=== PATIENT | male | born 1935 | race Caucasian/White ===

== ENCOUNTER 2017-06-25 17:14 | Inpatient (IN) | payer OTHER ==
[~2017-06-25] VITALS: Ht 175.3 cm; Wt 89.8 kg
[2017-06-25] MEDS ORDERED: NORVASC5 MG PO (18:03)
[2017-06-25] MEDS ORDERED: ASPIRIN EC81 M1 PO (18:04)
[2017-06-25] MEDS ORDERED: LIPITOR 20 MG T20 M1 PO (18:05)
[2017-06-25] MEDS ORDERED: CARVEDILOL3.125 MG PO (18:06)
[2017-06-25] MEDS ORDERED: PROBIOTIC1 EAC2 PO (18:06)
[2017-06-25] MEDS ORDERED: PLAVIX 75 MG TA75 M1 PO (18:07)
[2017-06-25] MEDS ORDERED: FINASTERIDE5 MG PO (18:07)
[2017-06-25] MEDS ORDERED: TRESIBA FL100 UNIT/1 SUBQ (18:08)
[2017-06-25] MEDS ORDERED: SAW PALMETTO160 MG PO (18:09)
[2017-06-25] MEDS ORDERED: FLOMAX0.4 MG PO (18:10)
[2017-06-25] MEDS ORDERED: CO Q-10100 MG PO (18:11)
[2017-06-25 18:45] VITALS: BP 152/51
--- NOTE | 2017-06-25 19:03 | NUR ---
PT TO ROOM 322 PER W/C PER VAN AND IS ALERT AND ORIENTATED. PT ORIENTATED TO CALL LIGHT AND SURROUNDINGS AND VS TAKEN. PT TRANSFERRED TO RECLINER FROM W/ WITH MIN ASSIST OF 1 WITH STEADY GAIT. PT INSTRUCTED ON USE OF CALL LIGHT AND TO CALL FOR ASSIST WITH ALL TRANSFERRS AND HE AGREES.
[2017-06-26 03:44] LABS: HEMATOCRIT 39.2 % (42.0-52.0); HEMOGLOBIN 13.7 gm/dL (14.0-18.0); MCH 32.2 pg (26.0-34.0); MCHC 34.8 g/dL (28.0-37.0); MCV 92.4 fL (80.0-100.0); MPV 8.7 fl. (7.2-11.1); RBC 4.24 mil/uL (4.50-6.00); RDW-CV 13.3 % (10.5-14.5); WBC 13.2 thou/uL (4.0-11.0)
[2017-06-26 03:54] LABS: CALCIUM 8.2 mg/dL (8.5-10.1); POTASSIUM 4.2 mmol/L (3.5-5.1)
--- NOTE | 2017-06-26 05:35 | NUR ---
ASSUMED PT CARE AT 1930. PT RECENTLY ARRIVED FROM [place], S/P R CVA AND R ENDARTERECTOMY. ADMISSION PAPERWORK AND DATABASES COMPLETED. PT ALERT AND ORIENTED X4, POLITE AND COOPERATIVE WITH CARES. PT C/O ABDOMINAL PAIN, GIVEN MOM, HAD EXTRA LARGE STOOL IN BSC. TRANSFERRED TO BED WITH MOD ASSIST, GAIT BELT, STAND/PIVOT. PT SLEPT WELL OVERNIGHT, INCONTINENT X1. PT TAKES PILLS WHOLE WITH WATER WITHOUT DIFFICULTY. PT HAS BRUISING TO R NECK AND LEFT ARM. CALL LIGHT AND FREQUENTLY USED ITEMS WITHIN REACH. HOURLY ROUNDING IN PROGRESS, WILL CONTINUE TO MONITOR.
[2017-06-26 08:00] VITALS: BP 144/64
--- NOTE | 2017-06-26 09:38 | NUR ---
Nutrition: Pt admitted to Rehab s/p CVA. Pt has DM. Waiting for insulin to arrive from home. BG is 163. +BM. RX noted. Wt: 203#. Heart Healthy diet. RD will add CHO count to diet order. RN stated no nutrition concerns at this time. Low risk. Will follow weekly.
--- NOTE | 2017-06-26 12:27 | NUR ---
SW met with pt to complete initial assessment, introduce self, and SW role. Pt in the room as well. Pt alert, oriented and pleasant. Pt anticipates to be able to dc home with . Pt has children and grandchildren in the area. Pt was previously independent with ADLs and mobility. Pt has a walker and access to a wc if needed. Pt home is one level and 2 steps to get inside the home. SW to continue to follow to assist with safe dc planning.
--- NOTE | 2017-06-26 15:36 | NUR ---
I have reviewed the documentation by SIMON BOCANEGRA from 06/26/17 to 06/26/17 and I concur with it. ALIREZA MONACO
--- NOTE | 2017-06-26 15:49 | NUR ---
ASSUMMED CARE OF PT AT 0730, PT ALERT AND ORIENTED, PT TRANSFERS WITH SBA/MIN ASSIST GB AND WALKER, PT DENIES PAIN, PT DENIES NAUSEA, TAKING FOOD AND FLUIDS WELL, PARTICIPATED IN ALL THERAPIES, VOIDS PER URINAL, HOURLY ROUNDING COMPLETED, TO DININGROOM FOR LUNCH, BRUISED NECK AT ENDARTERECTOMY SITE, FAMILY BROUGHT IN PTS HOME INSULIN PEN, SENT TO PHARMACY FOR APPROVAL. ASSESSMENT COMPLETE, WILL CONTINUE TO MONITER.
[2017-06-26 20:00] VITALS: BP 140/57
--- NOTE | 2017-06-27 02:17 | NUR ---
ASSUMED CARE AT 1930. PATIENT S/P RT CVA. RESTING IN RECLINER UNTIL HS. UP TO VOID PER TOILET, WAS ABLE TO MANAGE CLOTHES AND HYGIENE. UP WITH STEADYING ASSIST, GAIT BELT, WALKER. USED URINAL TWICE WITH LARGE AMOUNTS, BUT HAS BEEN INCONTINENT TWICE. HAD TO REMOVED PAJAMA BOTTOMS WITH FIRST INCONTINENCE, AND SHIRT WITH SECOND TIME. NOW WEARING HOSPITAL GOWN. URINAL AT BEDSIDE. ASSISTED WITH TURNS. TAKES PILLS WHOLE WITH WATER WITHOUT DIFF. RIGHT NECK BRUISED AND EDEMATOUS, INCISION C/D/I. HOURLY ROUNDS CONTINUE, BED ALARM ON. CALL LITE IN REACH.
--- NOTE | 2017-06-27 05:52 | NUR ---
SLEPT MOST OF THE NIGHT. INCONTINENT OF URINE TWICE THUS FAR THIS SHIFT. DID VOID PER URINAL AT TIMES. ASSISTED WITH TURNS. NO C/O PAIN. HOURLY ROUNDS CONTINUE, BED ALARM ON. CALL LITE IN REACH.
[2017-06-27 08:00] VITALS: BP 106/67
[2017-06-27 13:49] LABS: URINE BILIRUBIN NEGATIVE (Negative); URINE BLOOD NEGATIVE (Negative); URINE CLARITY CLEAR; URINE COLOR YELLOW; URINE GLUCOSE-RANDOM 3+ (Negative); URINE KETONES NEGATIVE (Negative); URINE LEUKOCYTES-REFLEX NEGATIVE (Negative); URINE NITRITE-REFLEX NEGATIVE (Negative); URINE PROTEIN NEGATIVE (Negative); URINE SPECIFIC GRAVITY 1.015 (1.005-1.030); URINE UROBILINOGEN 0.2 E.U./dl (0.2-1.0)
[2017-06-27 20:00] VITALS: BP 132/72
--- NOTE | 2017-06-28 05:21 | NUR ---
ASSUMED CARE AT 1930. PATIENT S/P CVA. IN CHAIR AT BEGINNING OF SHIFT, ASSISTED WITH HS CARES. STOOD TO VOID AT TOILET AT HS, ABLE TO DOFF CLOTHES WITH EXTRA TIME. CHANGED INTO HOSPITAL GOWN AT HS DUE TO HX SPILLING URINAL. ASSISTANCE GIVEN WITH URINAL. WEARS BRIEF. UP WITH CGA, GAIT BELT, WALKER. TURNS SELF IN BED. TAKES PILLS ALL AT ONE WITH WITH WATER. AFTER DINNER PATIENT CONSUMED LARGE SODA FROM [employer]. HE STATES HIS ORDERED DIET, BUT THINKS IT WAS REGULAR SODA FROM THE TASTE OF IT. BLOOD SUGAR AT HS 365. THIS REPORTED TO PHYSICIAN, NEW ORDERS FOR SLIDING SCALE INSULIN OBTAINTED. PATIENT STATES THAT HE HAS NEVER BEEN ON A SLIDING SCALE BEFORE, AND EDUCATION PROVIDED ABOUT IT. PATIENT IS AGREEABLE TO NEW ORDERS. HOURLY ROUNDS CONTINUE. BED ALARM ON. CALL LITE IN REACH.
[2017-06-28 08:00] VITALS: BP 136/74
--- NOTE | 2017-06-28 16:31 | NUR ---
ASSUMMED CARE OF PT AT 0730, PT ALERT AND ORIENTED, PT TRANSFERS WITH ASSIST OF 1, GB WALKER, AMBULATES TO TOILET OR VOIDS PER URINAL, PT DENIES NAUSEA, TAKING FOOD AND FLUIDS WELL, TO DININGROOM FOR LUNCH, DENIES PAIN, VISITORS HERE THIS PM, PT UP IN CHAIR FOR MEALS, PT DID PARTIAL BATH WITH SET UP, HOURLY ROUNDING COMPLETED, ASSESSMENT COMPLETE, WILL CONTINUE TO MONITER.
[2017-06-28 19:45] VITALS: BP 142/73
--- NOTE | 2017-06-28 20:00 | NUR ---
RECEIVED REPORT AND ASSUMED CARE OF PT, ASSESSMENT COMPLETED. SITTING UP IN CHAIR WATCHING TV. RT NECK INCISION INTACT, BRUISING NOTED AND SOME SWELLING. NO COMPLAINTS VOICED. WILL CONT TO MONITOR AND ASSIST NEEDED.
[2017-06-29 04:57] LABS: HEMATOCRIT 43.5 % (42.0-52.0); HEMOGLOBIN 15.2 gm/dL (14.0-18.0); MCH 32.6 pg (26.0-34.0); MCHC 34.9 g/dL (28.0-37.0); MCV 93.5 fL (80.0-100.0); RBC 4.65 mil/uL (4.50-6.00); RDW-CV 13.5 % (10.5-14.5); WBC 9.7 thou/uL (4.0-11.0)
[2017-06-29 05:19] LABS: CALCIUM 8.4 mg/dL (8.5-10.1); CREATININE 0.9 mg/dL (0.6-1.3); MAGNESIUM 1.9 mg/dL (1.8-2.4); POTASSIUM 3.9 mmol/L (3.5-5.1); TOTAL BILIRUBIN 0.7 mg/dL (<0.1-1.0); TOTAL PROTEIN 6.4 g/dL (6.4-8.2)
--- NOTE | 2017-06-29 05:28 | NUR ---
ASSUMED CARES AT 0200. PT IS A MIN ASSIST WITH GAIT BELT AND WALKER. UP TO BATHROOM. STAFF DID ASSIST WITH USING URINAL DURING THE NIGHT. SLEPT WELL. USED CALL LIGHT APPROPRIATELY. BED ALARM ON.
[2017-06-29 08:00] VITALS: BP 142/75
--- NOTE | 2017-06-29 16:15 | NUR ---
PT CARE ASSUMED THIS AM, ASSESSMENT AND VITAL SIGNS COMPLETED DOCUMENTED. PT TRANSFERS FROM BED TO RECLINER WITH SUPERVISION, AMBULATES WITHIN ROOM WITH WALKER AND SUPERVISION, USES THE TOILET AND HAD A LARGE BM. PT DENIES DISCOMFORT. FALL PRECAUTIONS AND HOURLY ROUNDING CONTINUE, PT HAS BEEN USING THE CALL LIGHT FOR STAFF ASSISTANCE.
[2017-06-29 19:45] VITALS: BP 156/88
--- NOTE | 2017-06-29 19:50 | NUR ---
RESTING QUIETLY IN BED. IN GOOD SPIRITS. VERY PLEASANT. DENIES DISCOMFORT. URINAL AND CALL LIGHT WITHIN REACH. TOOK MEDS WHOLE WITH WATER. SNACK PROVIDED.
--- NOTE | 2017-06-30 05:12 | NUR ---
USED URINAL DURING THE NIGHT. NO COMPLAINTS VOICED. HOURLY ROUNDING IN PROGRESS.
[2017-06-30 07:33] VITALS: BP 129/81
--- NOTE | 2017-06-30 16:34 | NUR ---
ASSUMMED CARE OF PT AT 0730, PT ALERT AND ORIENTED, FORGETFUL, PT TRANSFERS WITH SBA TO MIN ASSIST, GB WALKER, PT TAKING FOOD AND FLUIDS WELL, PT VOIDS PER URINAL OR TOILET, TO DININGROOM FOR LUNCH, DENIES PAIN, DENIES NAUSEA, TAKING FOOD AND FLUIDS WELL, PARTICIPATED IN ALL THERAPIES, HOURLY ROUNDING COMPLETED, ASESSMENT COMPLETE, WILL CONTINUE TO MONITER.
--- NOTE | 2017-06-30 20:25 | NUR ---
SITTING UP IN BED. DENIES DISCOMFORT. CALL LIGHT AND URINAL WITHIN REACH. TOOK MEDS WHOLE ALL AT ONCE WITH WATER. SNACK PROVIDED.
[2017-06-30 21:37] VITALS: BP 158/83
--- NOTE | 2017-07-01 05:32 | NUR ---
RESTED QUIETLY. USED URINAL DURING THE NIGHT. HOURLY ROUNDING IN PROGRESS.
[2017-07-01 07:36] VITALS: BP 143/79
--- NOTE | 2017-07-01 15:00 | NUR ---
Team conference held, SW met with pt to review team conference summary. Pt was experiencing stomach cramps and had a couple episodes of diarrhea. SW discussed plan for pt to remain on rehab unit and continue therapies with plan for team to reteam and reassess pt length of stay during team conference on Thursday. Team reported pt to need min assist with 12 stairs, toilet transfer, bathing, problem solving, and memory so plan is for pt to continue working on making progress in those areas especially. Pt in agreement with plan. SW called pt Liv Shahid to try to review team conference summary with pt as well, Liv Shahid did not answer so SW left a detailed message. SW to continue to follow to assist with safe dc planning.
--- NOTE | 2017-07-01 16:53 | NUR ---
ASSUMED CARE AT 0730 PATIENT ALERT/ORIENTED, NO COMPLAINTS OF PAIN THIS SHIFT, UP WITH ASSIST OF ONE AND WALKER/GAIT BELT. PARTICIPATED IN ALL THERAPIES TODAY, TO DINING ROOM FOR MEALS, HOURLY ROUNDING COMPLETED, BED/CHAIR ALARMS IN PLACE, CALL LIGHT IN REACH.
[2017-07-01 20:00] VITALS: BP 167/83
--- NOTE | 2017-07-02 05:03 | NUR ---
ASSUMED PT CARE AT 1915. PT ALREADY IN BED AT SHIFT CHANGE, POLITE AND COOPERATIVE WITH CARES. DENIES PAIN. TAKES PILLS WHOLE WITH WATER WITHOUT DIFFICULTY. PT VOIDS PER URINAL OVERNIGHT, STAFF EMPTIES. PT REFUSES TURNS, CAN TURN HIMSELF. CALL LIGHT AND FREQUENTLY USED ITEMS WITHIN REACH. HOURLY ROUNDING IN PROGRESS, WILL CONTINUE TO MONITOR.
[2017-07-02 07:32] VITALS: BP 149/83
--- NOTE | 2017-07-02 16:22 | NUR ---
ASSUMED CARE AT 0730 PATIENT ALERT/ORIENTED, NO COMPLAINTS OF PAIN THIS SHIFT, UP WITH ONE WALKER AND GAIT BELT, PARTICIPATED IN ALL THERAPIES TODAY, TO DINING ROOM FOR MEALS, BED/CHAIR ALARMS IN PLACE, CALL LIGHT IN REACH, HOURLY ROUNDING COMPLETED
[2017-07-02 20:07] VITALS: BP 147/80
--- NOTE | 2017-07-02 22:17 | NUR ---
ASSUMED CARE AT 1930. PATIENT S/P CVA AFTER CAROTID ENDARTERECTOMY. BRUISING CONTINUES TO NECK AT INCISION AREA. UP WITH SBA, GAIT BELT, WALKER. VOIDED PER TOILET AT HS, BUT WILL USE URINAL THROUGH NIGHT. COLACE HELD THIS PM DUE TO PRIOR LOOSE STOOLS. DOES OWN CLOTHING ADJUSTMENTS, AND HYGIENE AFTER VOIDING, ABLE TO GET LEGS INTO BED WITHOUT DIFF. TAKES PILLS WHOLE ALL AT ONE TIME WITH WATER WITHOUT DIFF. PATIENT TURNS SELF, REFUSES ASSIST. CALL LITE IN REACH. BED ALARM ON. HOURLY ROUNDS CONTINUE.
[2017-07-03 04:08] LABS: HEMATOCRIT 42.5 % (42.0-52.0); HEMOGLOBIN 14.7 gm/dL (14.0-18.0); MCH 32.3 pg (26.0-34.0); MCHC 34.5 g/dL (28.0-37.0); MCV 93.8 fL (80.0-100.0); MPV 8.2 fl. (7.2-11.1); RBC 4.53 mil/uL (4.50-6.00); RDW-CV 13.8 % (10.5-14.5); WBC 10.4 thou/uL (4.0-11.0)
[2017-07-03 04:41] LABS: CALCIUM 8.4 mg/dL (8.5-10.1); POTASSIUM 3.8 mmol/L (3.5-5.1)
--- NOTE | 2017-07-03 05:32 | NUR ---
SLEPT MOST OF THE NIGHT EXCEPT TO VOID. USED URINAL ONCE AFTER GOING TO BED. TOLERATED WELL. TURNS SELF. NO C/O PAIN. HOURLY ROUNDS CONTINUE. BED ALARM ON. CALL LITE IN REACH.
[2017-07-03 08:06] VITALS: BP 149/66
[2017-07-03 20:09] VITALS: BP 165/51
--- NOTE | 2017-07-04 00:04 | NUR ---
ASSUMED CARE AT 1930. PATIENT S/P CVA WITH LT SIDED WEAKNESS. RESTING IN RECLINER UNTIL AROUND 1999. UP WITH SBA, GAIT BELT, AND CANE. VOIDS PER TOILET DURING DAY, USES URINAL AT NOC. DOES OWN HYGIENE AND CLOTHING ADJUSTMENTS. TURNS SELF. DECLINES COLACE. DENIES PAIN. HOURLY ROUNDS CONTINUE, BED ALARM ON. CALL LITE IN REACH.
--- NOTE | 2017-07-04 05:48 | NUR ---
SLEPT MOST OF THE NIGHT. SPILLED URINAL ONCE, REQUIRING LINEN CHANGE. BOTTOM PINK, SKIN CARE DONE, MOISTURE BARRIER APPLIED. WILL REMOVE BRIEFS IN HOPES OF KEEPING FROM SPILLING URINAL. ALSO DISCUSSED VOIDING PER TOILET AT NIGHT THAT IS WHAT HE WOULD HAVE A GOAL FOR HOME. HOURLY ROUNDS CONTINUE. BED ALARM ON. CALL LITE IN REACH.
--- NOTE | 2017-07-04 06:15 | NUR ---
VOIDED PER TOILET, AND STATES THAT HE THINKS HE EMPTIES BETTER STANDING RATHER THAN USING URINAL. STEADYING ASSIST NEEDED AT THIS TIME.
[2017-07-04 08:09] VITALS: BP 129/67
--- NOTE | 2017-07-04 17:56 | NUR ---
ASSUMED CARE AT 0730 PATIENT ALERT/ORIENTED, NO COMPLAINTS OF PAIN THIS SHIFT, UP WITH STANDBY ASSIST AND CANE. HOURLY ROUNDING COMPLETED, TO DINING ROOM FOR MEALS, BED/CHAIR ALARMS IN PLACE, CALL LIGHT IN REACH
[2017-07-04 19:56] VITALS: BP 148/71
--- NOTE | 2017-07-05 05:35 | NUR ---
ASSUMED PT CARE AT 1930. PT ALERT AND ORIENTED X4, POLITE AND COOPERATIVE WITH CARES. PT UP WITH SBA, GAIT BELT AND CANE TO BR AT BEGINNING OF SHIFT TO VOID. PT TO BED WITH SBA, CAN LIFT OWN LEGS INTO BED WITHOUT ASSIST. PT USED URINAL OVERNIGHT TO VOID, STAFF EMPTIED. TAKES PILLS WHOLE ONE AT A TIME WITHOUT DIFFICULTY. PT CAN TURN SELF IN BED, REFUSES ASSIST. CALL LIGHT AND FREQUENTLY USED ITEMS WITHIN REACH. BED ALARM ON FOR SAFETY. HOURLY ROUNDING IN PROGRESS, WILL CONTINUE TO MONITOR.
[2017-07-05 07:52] VITALS: BP 139/73
--- NOTE | 2017-07-05 18:29 | NUR ---
ASSUMED CARE AT 0730 PATIENT ALERT/ORIENTED, NO COMPLAINTS OF PAIN/DISCOMFORT, UP WITH ASSIST OF ONE AND CANE. TO DINING ROOM FOR MEALS, /FRIENDS VISITING THROUGHOUT DAY. HOURLY ROUNDING COMPLETED, BED/CHAIR ALARMS IN PLACE. CALL LIGHT IN REACH.
[2017-07-05 20:13] VITALS: BP 164/67
--- NOTE | 2017-07-05 20:15 | NUR ---
AMBULATED FROM BED TO THE TOILET WITH SBA, GAITBELT, CANE. STOOD AT TOILET TO VOID AND SPILLED URINE ON GOWN AND ON THE FLOOR. NEW GOWN PROVIDED AND URINE CLEANED OFF OF FLOOR. DENIES PAIN. SNACK PROVIDED.
--- NOTE | 2017-07-06 06:20 | NUR ---
USED URINAL X ONE DURING THE NIGHT. NO COMPLAINTS VOICED. HOURLY ROUNDING IN PROGRESS.
[2017-07-06 07:30] VITALS: BP 142/75
--- NOTE | 2017-07-06 08:00 | NUR ---
ASSUMED CARE OF PT ASSESSED AND DOCUMENTED. PT IS A&O WITH NO C/O PAIN. VSS WNL. PT IS AFEBRILE. FALL PRECAUTIONS IN PLACE PER FACILITY PROTOCOL. WM.
[2017-07-06 08:21] LABS: HEMATOCRIT 41.3 % (42.0-52.0); HEMOGLOBIN 14.5 gm/dL (14.0-18.0); MCH 32.7 pg (26.0-34.0); MCV 93.3 fL (80.0-100.0); MPV 8.6 fl. (7.2-11.1); RBC 4.43 mil/uL (4.50-6.00); RDW-CV 13.9 % (10.5-14.5); WBC 6.6 thou/uL (4.0-11.0)
[2017-07-06 08:29] LABS: CALCIUM 8.3 mg/dL (8.5-10.1); POTASSIUM 3.8 mmol/L (3.5-5.1)
--- NOTE | 2017-07-06 14:05 | NUR ---
SPOKE WITH JHOANA AT DR SAPP. SHE WANTED TO SEE PT TODAY IN HOUSE SO PUT IN CONSULT PER CONVERSATION WITH DR FORBES.
--- NOTE | 2017-07-06 17:11 | NUR ---
CM SPOKE TO THE PATIENT AND HIS SPOUSE TO DISCUSS ANY QUESTIONS OR CONCERNS THAT THEY MAY HAVE FOR TOMORROW'S TEAM CONFRENCE MEETING. PATIENT AND HIS SPOUSE HAVE NO QUESTIONS OR CONERNS AT THIS TIME. CM WILL REMAIN AVAILABLE TO ASSIST AND FOLLOW NEEDED.
--- NOTE | 2017-07-06 17:53 | NUR ---
PT HAS RESTED IN HIS ROOM THIS SHIFT. PT UP AMBULATING WITH A CANE AND APPEARS STEADY ON HIS FEET. PT HAD NO C/O PAIN. EDUCATION GIVEN ON DEMAND. HOURLY ROUNDING COMPLETE. PT UP TO THE DINING ROOM FOR LUNCH AND DINNER.
[2017-07-06 20:14] VITALS: BP 162/73
--- NOTE | 2017-07-07 05:36 | NUR ---
ASSUMED PT CARE AT 1930. PT ALERT AND ORIENTED X4, POLITE AND COOPERATIVE WITH CARES. PT UP WITH SBA, GAIT BELT AND CANE TO BR AT BEGINNING OF SHIFT TO VOID. PT TO BED WITH SBA, CAN LIFT OWN LEGS INTO BED WITHOUT ASSIST. PT USED URINAL OVERNIGHT TO VOID, STAFF EMPTIED. TAKES PILLS WHOLE ALL AT ONCE WITHOUT DIFFICULTY. CALL LIGHT AND FREQUENTLY USED ITEMS WITHIN REACH, BED ALARM ON FOR SAFETY. HOURLY ROUNDING IN PROGRESS, WILL CONTINUE TO MONITOR.
[2017-07-07 07:30] VITALS: BP 146/73
--- NOTE | 2017-07-07 17:15 | NUR ---
PT PARTICIPATES IN ALL THERAPIES. TOLERATES PO WELL WITH GOOD APPETITE. PT UP IN ROOM WITH WALKER AND SB ASSIST
[2017-07-07 19:30] VITALS: BP 155/71
--- NOTE | 2017-07-08 05:27 | NUR ---
ASSUMED CARES AT 1920. PT ALERT AND ORIENTED. PLEASANT. DENIES ANY PAIN. HE IS A MIN ASSIST WITH GAIT BELT AND CANE. UP TO BATHROOM. TAKES PILLS WHOLE. CALL LIGHT IN REACH.
[2017-07-08 07:00] VITALS: BP 156/69
--- NOTE | 2017-07-08 16:13 | NUR ---
CM SPOKE TO THE PATIENT TO DISCUSS DISCHARGE PLANNING NEEDS AND CHOICE OF HH. PATIENT CHOSE [facility]. CM SPOKE TO AGUSTÍN AT [facility] TO INFORM OF THE REFERRAL FOR HH AND FAXED THE PATIENT'S CLINCAL INFO. [facility] IS ABLE TO ACCEPT THE PATIENT, AND WILL NEED ORDERS FAXED AT D/C. CM ALSO SPOKE TO LUCY WITH [facility] TO INFORM OF THE NEED FOR DME AT DISCHARGE. LUCY RETURNED CALL AND INFORMS THAT THE PATIENT QUALIFIES FOR A WALKER OR CANE, AND WILL JUST NEED THE ORDER FAXED AT D/C. CM WILL REMAIN AVAILABLE TO ASSIST AND FOLLOW NEEDED.
--- NOTE | 2017-07-08 16:35 | NUR ---
ASSUMED CARE AT 0730 PATIENT ALERT/ORIENTED, NO COMPLAINTS OF PAIN THIS SHIFT, TO DINING ROOM FOR MEALS, HOURLY ROUNDING COMPLETED, BED/CHAIR ALARMS IN PLACE, CALL LIGHT IN REACH, PARTICIPATED IN ALL THERAPIES TODAY, AMBULATING WITH CANE AND GAIT BELT WITH NO DIFFICULTIES.
[2017-07-08 20:29] VITALS: BP 125/69
--- NOTE | 2017-07-08 23:16 | NUR ---
ASSUMED CARE AT 1930. PATIENT RESTING IN RECLINER UNTIL AROUND 2030. VOIDED PER TOILET. ENCOURAGED TO VOID PER TOILET RATHER THAN USE URINAL TO INCREASE ENDURANCE. TAKES PILLS WHOLE WITH WATER. TURNS SELF IN BED. UP WITH SBA. USES CANE IN DAY, ENCOURAGED USE OF WALKER AT [facility] FOR SAFETY. DENIES PAIN. VERY PLEASANT. HOURLY ROUNDS CONTINUE. BED ALARM ON. CALL LITE IN REACH.
[2017-07-09 05:26] LABS: HEMATOCRIT 39.7 % (42.0-52.0); HEMOGLOBIN 14.1 gm/dL (14.0-18.0); MCH 32.8 pg (26.0-34.0); MCHC 35.5 g/dL (28.0-37.0); MCV 92.3 fL (80.0-100.0); RBC 4.3 mil/uL (4.50-6.00); RDW-CV 13.8 % (10.5-14.5); WBC 7.4 thou/uL (4.0-11.0)
--- NOTE | 2017-07-09 05:37 | NUR ---
SLEPT MOST OF THE NIGHT. UP TWICE TO TOILET TO VOID AFTER BEDTIME. TURNS SELF. REFUSES ASSIST. HOURLY ROUNDS CONTINUE. BED ALARM ON. CALL LITE IN REACH.
[2017-07-09 05:41] LABS: CALCIUM 8.4 mg/dL (8.5-10.1); CREATININE 0.9 mg/dL (0.6-1.3); POTASSIUM 3.4 mmol/L (3.5-5.1)
--- NOTE | 2017-07-09 05:53 | NUR ---
VENOUS LAB DRAW HAD GLUCOSE AT 60. FINGERSTICK BLOOD SUGAR DONE=59. GIVEN VANILLA ICE CREAM AT THIS TIME. DENIES S/SX OF HYPOGLYCEMIA
--- NOTE | 2017-07-09 06:59 | NUR ---
BLOOD SUGAR AT 0630 WAS 117.
[2017-07-09 08:14] VITALS: BP 148/66
--- NOTE | 2017-07-09 15:26 | NUR ---
Following for d/c planning needs. Spoke with [facility] liaison and will fax order for walker when available.
--- NOTE | 2017-07-09 19:33 | NUR ---
PT HAS BEEN UP TO RECLINER MOST OF DAY AND CALLS FOR ASSIST WITH AMBULATION. PT DENIES PAIN OR NAUSEA. AND TOLERATES MEALS. PT AMBULATES WITH MIN ASSIST AND USE OF CANE.PT PROGRESSES TOWARDS GOALS AND HOURLY ROUNDING CONTINUES.
[2017-07-09 20:34] VITALS: BP 175/69
[2017-07-10 04:38] LABS: CALCIUM 8.4 mg/dL (8.5-10.1); CREATININE 0.8 mg/dL (0.6-1.3); POTASSIUM 3.7 mmol/L (3.5-5.1)
--- NOTE | 2017-07-10 05:29 | NUR ---
ASSUMED PT CARE AT 1930. PT ALERT AND ORIENTED X4, POLITE AND COOPERATIVE WITH CARES. DENIES PAIN. TAKES PILLS WHOLE WITH WATER WITHOUT DIFFICULTY. CAN TURN SELF IN BED. UP X4 TO BATHROOM TO VOID OVERNIGHT WITH SBA AND CANE. USES CALL LIGHT APPROPRIATELY. CALL LIGHT AND FREQUENTLY USED ITEMS WITHIN REACH. BED ALARM ON FOR SAFETY. HOURLY ROUNDING IN PROGRESS, WILL CONTINUE TO MONITOR.
[2017-07-10 08:37] VITALS: BP 167/74
[2017-07-10 20:41] VITALS: BP 180/77
--- NOTE | 2017-07-10 23:42 | NUR ---
ASSUMED CARE AT 1930. PATIENT S/P CVA. TO BED AROUND 1999. VOIDS PER TOILET. WEARS PULLUPS. ONE PULLUP WAS SATURATED WITH URINE, BUT DID NOT EXTEND ONTO CLOTHING. PATIENT DONS PULLUPS WITH SETUP. UP WITH SBA, GAIT BELT, CANE. TAKES PILLS WHOLE WITH WATER. TURNS SELF. DENIES PAIN. ENCOURAGED TO SLOW DOWN WITH CANE WALKING. HAD LARGE, HARD BM THIS PM. TAKING STOOL SOFTENERS. HAD FRANCES [employer]ERS AND APPLE JUICE FOR HS SNACK. HOURLY ROUNDS CONTINUE. BED ALARM ON. CALL LITE IN REACH.
[2017-07-11 04:27] LABS: HEMATOCRIT 41.3 % (42.0-52.0); HEMOGLOBIN 14.4 gm/dL (14.0-18.0); MCH 32.7 pg (26.0-34.0); MCHC 34.9 g/dL (28.0-37.0); MCV 93.9 fL (80.0-100.0); MPV 9.1 fl. (7.2-11.1); RBC 4.4 mil/uL (4.50-6.00); RDW-CV 13.9 % (10.5-14.5); WBC 6.1 thou/uL (4.0-11.0)
[2017-07-11 05:06] LABS: CALCIUM 8.7 mg/dL (8.5-10.1); CREATININE 0.8 mg/dL (0.6-1.3); MAGNESIUM 2.1 mg/dL (1.8-2.4); POTASSIUM 3.6 mmol/L (3.5-5.1)
--- NOTE | 2017-07-11 05:38 | NUR ---
VENOUS LAB DRAW RESULTS RETURNED AT 0525. GLUCOSE FROM LAB DRAW WAS 65. FINGER STICK BLOOD SUGAR WAS 71. PATIENT TAKES TRESIBA 20 UNITS DAILY. PATIENT STATES THAT HE IS NOT ON SLIDING SCALE AT HOME. GIVEN VANILLA ICE CREAM AT THIS TIME SINCE BREAKFAST IS NOT UNTIL 0800.
--- NOTE | 2017-07-11 05:57 | NUR ---
SLEPT MOST OF THE NIGHT. UP TO VOID PER TOILET. NEEDS A LITTLE STEADYING ASSIST AT NIGHT WHILE USING CANE. DENIES PAIN. TURNS SELF. SEE PRIOR NOTE REGARDING BLOOD SUGARS. HOURLY ROUNDS CONTINUE. BED ALARM ON. CALL LITE IN REACH.
[2017-07-11 07:53] VITALS: BP 160/63
--- NOTE | 2017-07-11 14:20 | CON ---
[address] [address] CONSULTATION Name: JOSE DOLL Room: [address] IN .R.#: [id number] Admission: 06/25/17 Attend Phys: Sharla Rucker DO Discharge: Date of : 33 Report #: [id number] THIS REPORT FOR: //name// CC: Arjun Rucker DATE OF SERVICE: 07/06/2017 REASON FOR CONSULTATION: Status post right carotid endarterectomy. HISTORY OF PRESENT ILLNESS: The patient is a very pleasant 81-year-old male who is well known to our service with a history of carotid artery stenosis. He was seen in consultation at [facility] on 06/18/2017 after presenting with left-sided weakness. An MRI of the brain during that admission showed acute or early subacute infarcts in the right cerebral hemisphere as well as an old hemorrhagic infarct in the right frontal lobe. A carotid duplex was obtained, which demonstrated 50%-69% stenosis of the right internal carotid artery. He ultimately underwent a right carotid endarterectomy on 06/23/[address] Randy Ryan. He did well postoperatively. He was transferred here to [place] for acute rehabilitation. He reports he has been doing quite well with his therapy. He denies any new CVA or TIA type symptoms. He reports his left-sided weakness has continued to improve, although is not quite yet back to his baseline. He denies any new CVA or TIA type symptoms since his surgery. We have been asked to evaluate the patient for ongoing management following his carotid endarterectomy. He denies any nausea, vomiting, fevers, chills, chest pain or shortness of breath. PAST MEDICAL HISTORY: 1. Carotid artery stenosis. 2. History of cerebrovascular accident. 3. Coronary artery disease. 4. Diabetes mellitus type 2. 5. Hypertension. 6. Hyperlipidemia. 7. Colon cancer. PAST SURGICAL HISTORY: 1. Right carotid endarterectomy. 2. Colon resection. 3. Tonsillectomy. 4. Inguinal hernia repair. ALLERGIES: No known drug allergies. HOME MEDICATIONS: [place] [address] CONSULTATION Name: JOSE DOLL Room: [address] IN [facility]#: [id number] Admission: 06/25/17 Attend Phys: Sharla Rucker DO Discharge: Date of : 34 Report #: [id number] FAMILY HISTORY: Significant for heart disease in his mother. His parents both from cancer at old ages. His maternal grandmother did have a stroke. SOCIAL HISTORY: He is a nonsmoker, no alcohol or illicit drug use. He is , lives in his own home with his . REVIEW OF SYSTEMS: A 12-point review of systems has been reviewed and is negative except for the above-mentioned in the history of present illness. PHYSICAL EXAMINATION: VITAL SIGNS: Temperature 36.4, heart rate 66, blood pressure 142/75, oxygen saturation 96% on room air. GENERAL: He is alert and oriented, in no acute distress. HEENT: Head is normocephalic, atraumatic. NECK: Supple. His right neck incision is clean, dry and intact, healing well. He has mild edema, no significant ecchymosis. HEART: Irregular rhythm, regular rate. CHEST: Lungs clear to auscultation bilaterally. ABDOMEN: Soft, nontender, positive bowel sounds in all quadrants. EXTREMITIES: He has palpable bilateral radial and dorsalis pedis pulses. NEUROLOGIC: He is alert and oriented. He has continued left-sided weakness, but this has greatly improved since his admission at [facility]. LABORATORY DATA: Hemoglobin 14.5, hematocrit 41.3, white blood cell count 6.6, platelets 238. Sodium 144, potassium 3.8, chloride 107, CO2 31, BUN 15, creatinine 1.0. Glucose is 109. ASSESSMENT AND PLAN: Carotid artery stenosis, symptomatic with cerebrovascular accident, status post a right carotid endarterectomy on 06/23/[address] Randy Ryan. He continues to do very well postoperatively. Recommend continuing rehabilitation efforts. We will obtain a followup carotid duplex in our outpatient office in 6 months. Recommend continuing antiplatelet therapy with aspirin as well as statin therapy for stroke risk reduction. We thank you for the opportunity to participate in the care of the patient. Please feel free to contact our office with any questions or concerns. <ELECTRONICALLY SIGNED> By: Ronni Lu DO 07/11/17 [id number] [id number] Rodas /nt
--- NOTE | 2017-07-11 15:12 | NUR ---
ASSUMED CARE AT 0730. ALERT ORIENTED PLEASANT COOPERATIVE, HX OF CVA. TRANSFERS WITH SBA G BELT WALKER AMBULATES TO BR TO VOID ABLE TO DO HYGEINE AND CLOTHING ADJUSTMENTS. BED CHAIR ALARM FOR PT. SAFETY. USES CALL LIGHT APPROPRIATELY FOR ASSIST. FEEDS SELF TAKES MEDS WITHOUT DIFFICULTY. PARTICIPATING IN THERAPIES THROUGHOUT THE DAY. TO FOR MEALS.
[2017-07-11 20:39] VITALS: BP 167/75
--- NOTE | 2017-07-12 05:32 | NUR ---
ASSUMED CARES AT 1920. PT ALERT AND ORIENTED. PLEASANT. DENIES ANY PAIN, N/V, SOA. TAKES PILLS WHOLE WITHOUT ISSUES. HE IS A MIN ASSIST WITH GAIT BELT AND CANE. UP TO BATHROOM. HAD BM AND DID OWN CARES. DID USE URINAL ONCE AND RN EMPTIED. SLEPT MOST OF THE NIGHT. NO COMPLAINTS. CALL LIGHT IN REACH AND BED ALARM ON.
[2017-07-12 07:30] VITALS: BP 159/74
--- NOTE | 2017-07-12 16:13 | NUR ---
ASSUMED CARE AT 0730. ALERT ORIENTED PLEASANT COOPERATIVE. HX OF CVA TRANSFERS WITH SBA G BELT CANE AMBULATES TO DR FOR MEALS, FEEDS SELF TAKES MEDS WITHOUT DIFFICULTY. DENIES PAIN OR REQUESTS. USES CALL LIGHT APPROPRIATELY FOR ASSIST. BED CHAIR ALARM FOR PT. SAFETY. VOIDS IN TOILET BUT GUARD RING MISSING VOIDED IN TOILET AND ALSO ON FLOOR THIS A.M. UP IN RECLINER AT BEDSIDE WITH FEET ELEVATED MUCH OF THE DAY.
[2017-07-12 19:49] VITALS: BP 133/46; BP 172/80
--- NOTE | 2017-07-13 05:40 | NUR ---
ASSUMED CARES AT 1920. PT ALERT AND ORIENTED. PLEASANT. DENIES ANY PAIN, PARKER, N/V, SOA. HE IS A SBA WITH GAIT BELT AND CANE. UP TO BATHROOM. DID ALSO USE URINAL AND RN EMPTIED. SLEPT WELL MOST OF THE NIGHT. CALL LIGHT IN REACH AND BED ALARM ON.
[2017-07-13 08:00] VITALS: BP 161/74
--- NOTE | 2017-07-13 16:19 | NUR ---
CM SPOKE TO THE PATIENT TO DISCUSS DISCHARGE PLANNING NEEDS AND TO DISCUSS ANY QUESTIONS OR CONCERNS THAT HE MAY HAVE. PATIENT HAS NO QUESTIONS OR CONCERNS AT THIS TIME. CM SPOKE TO AGUSTÍN AT [facility] TO INFORM OF PATIENTS D/C TOMORROW. CM FAXED PATIENTS D/C ORDERS. [facility] WILL CONTACT THE PATIENT TO SETUP VISIT. CM TO TO CLARIFY DME NEEDS WITH P.T. AND FAX ORDER. [facility] HAS ALREADY APPROVED PATIENT FOR DME AND P.T. CAN DISPENSE FROM CLOSET. CM WILL REMAIN AVAILABLE TO ASSIST AND FOLLOW NEEDED.
--- NOTE | 2017-07-13 17:11 | NUR ---
ASSUMED CARE AT 0730. ALERT ORIENTED PLEASANT COOPERATIVE. HX OF CVA WEAKNESS. TRANSFERS WITH SBA G BELT WALKER AND AMBULATES TO BR TO VOID ABLE TO DO HYGEINE AND CLOTHING ADJUSTMENTS. DENIES PAIN OR REQUESTS. PARTICIPATING IN THERAPIES THROUGHOUT THE DAY. USES CALL LIGHT APPROPRIATELY FOR ASSIST. BED CHAIR ALARM FOR PT. SAFETY. FEEDS SELF AND TAKES MEDS WITHOUT DIFFICULTY. PT. HAD A MOD HARD BM THIS AFTERNOON THERE WAS A MOD AMT OF BLOOD COLORING WATER PT. DID SAY HE HAD A LITTLE DISCOMFORT PASSING STOOL DR. ZARCO NOTIFIED ORDERED CBC NOW AND IN A.M.
[2017-07-13 17:38] LABS: HEMATOCRIT 42.9 % (42.0-52.0); HEMOGLOBIN 14.9 gm/dL (14.0-18.0); MCH 32.9 pg (26.0-34.0); MCHC 34.7 g/dL (28.0-37.0); MCV 94.6 fL (80.0-100.0); MPV 8.9 fl. (7.2-11.1); RBC 4.53 mil/uL (4.50-6.00); RDW-CV 13.8 % (10.5-14.5); WBC 7.7 thou/uL (4.0-11.0)
[2017-07-13 19:49] VITALS: BP 176/83
--- NOTE | 2017-07-14 00:01 | NUR ---
ASSUMED CARES AT 1920. PT ALERT AND ORIENTED. DENIES ANY PAIN. HE IS A SBA WITH GAIT BELT AND CANE. UP TO BATHROOM. DOES OWN CARES. TAKES PILLS WHOLE WITHOUT ISSUES. CALL LIGHT IN REACH. WILL CONTINUE TO MONITOR.
[2017-07-14 00:13] VITALS: BP 176/83
[2017-07-14 05:38] LABS: HEMATOCRIT 44.1 % (42.0-52.0); MCH 32.8 pg (26.0-34.0); MCV 96.2 fL (80.0-100.0); MPV 9.5 fl. (7.2-11.1); RBC 4.59 mil/uL (4.50-6.00); WBC 7.6 thou/uL (4.0-11.0)
--- NOTE | 2017-07-14 06:11 | NUR ---
PT SLEPT MOST OF THE NIGHT. USED URINAL AND RN EMPTIED. NO COMPLAINTS. CALL LIGHT IN REACH.
[2017-07-14 08:00] VITALS: BP 153/68
[2017-07-14 11:28] VITALS: BP 176/83
[2017-07-14 11:29] VITALS: BP 176/83
--- NOTE | 2017-07-14 11:30 | NUR ---
ELHAM met with pt to discuss safe dc planning for today, Friday 07/14. Pt to dc home with and [facility] HH services to follow. ELHAM discussed with PT the order for DME determined to be a standard single point cane, ELHAM faxed order to Vera at [employer]; cane to be issued by PT, order filed in pt chart. Pt to provide ride home at 2 pm.
--- NOTE | 2017-07-14 14:55 | NUR ---
ASSUMMED CARE OF PT AT 0730, PT ALERT AND ORIENTED, PT TRANSFERS WITH SBA, GB AND CANE, PT DENIES PAIN, DENIES NAUSEA, INCISION TO RIGHT NECK HEALED, TAKING FOOD AND FLUIDS WELL,HOURLY ROUNDING COMPLETED, PT PARTICIPATED IN ALL THERAPIES, ORDERS FOR DISCHARGE OBTAINED, PT INSTRUCTED ON DISHARGE MEDICATIONS, FOLLOW UP APPTS, WHEN TO CALL PHYSICIAN, HOME HEALTH, STROKE SYMPTOMS, DIET, FALL PRECAUTIONS, SPOUSE AND PT COMMUNICATE UNDERSTANDING OF INSTRUCTIONS, DISHCARGE PAPERWORK GIVEN TO PT, HOME INSULIN PENS RETURNED TO PT, BELONGING SENT WITH PT, PT ESCORTED TO MAIN EMTRANCE PER WHEELCHAIR.
--- NOTE | 2017-07-27 15:02 | H ---
[address] [address] HISTORY AND PHYSICAL Name: JOSE DOLL Room: [address]#: [id number] Admission: 06/25/17 Attend Phys: Sharla Rucker DO Discharge: 07/14/17 Date of : 33 Report #: [id number] THIS REPORT FOR: //name// CC: Arjun Rucker DATE OF SERVICE: 06/25/2017 HISTORY OF PRESENT ILLNESS: This is an 81-year-old right-hand dominant male who is admitted to inpatient rehabilitation to facilitate safe discharge home, status post acute admission to [place] on 06/17/2017 with left-arm weakness, clumsiness, some aphasia and a little bit of dysphagia diagnosed via CT with an old right frontal lobe infarct. MRI showed multiple infarcts in the frontal and parietal area. He is also noted to have a right carotid endarterectomy on 06/23/2017 due to a blockage noted. In the postoperative period, he has done well with physical and occupational therapy as well as speech and language pathology. He was previously independent with all activities of daily living, did not use a cane or walker, [place] with his , 2 steps to enter with a rail. He is in good health. No significant changes since the preadmission screening. Current level of function is minimum to moderate assistance of 1-2 depending on therapy, activity and time of day. He does have mild impairment of comprehension, expression, problem solving and memory. Estimated length of stay is 14-16 days with discharge disposition to the home setting with supportive family. He does have multiple medical comorbidities requiring acute medical care on a daily basis. He does have a random glucose of 145 with mildly uncontrolled diabetes as well as hypertension. PAST MEDICAL HISTORY: Hypertension, diabetes, coronary artery disease, BPH, hyperlipidemia. PAST SURGICAL HISTORY: NSTEMI and history of colon cancer. SURGICAL HISTORY: Tonsillectomy, inguinal hernia repair and a colon resection. ALLERGIES: No known drug allergies. MEDICATIONS: Reviewed and reconciled by myself and are available in the MAR. SOCIAL HISTORY: No tobacco, alcohol or illicit drug use. FAMILY HISTORY: Cancer and diabetes. REVIEW OF SYSTEMS: A 14-point review of systems is done today, is negative except as mentioned in HPI, specifically no fever, chest pain, shortness of breath, abdominal pain or distention, change in bowel [place] [address] HISTORY AND PHYSICAL Name: JOSE DOLL Karthikeyan Room: [address]#: [id number] Admission: 06/25/17 Attend Phys: Sharla Rucker DO Discharge: 07/14/17 Date of : 33 Report #: [id number] PHYSICAL EXAMINATION: GENERAL: Alert, oriented, in no apparent distress. VITAL SIGNS: Reviewed and are stable. HEENT: Atraumatic, normocephalic. Pupils are equal, round, reactive. NECK: Supple. He does have significant bruising on the right side and anterior side from his carotid endarterectomy. LUNGS: Symmetric expansion of both lungs. ABDOMEN: He is mildly obese, but abdomen is soft. 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 He does have some problem with abduction and internal rotation on the left upper extremity. SKIN: Warm and dry. No rashes or lesions noted. MUSCULOSKELETAL: No clubbing, cyanosis or edema. ASSESSMENT: 1. 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 2. Multiple medical comorbidities including mildly uncontrolled diabetes, hypertension, hyperlipidemia and history of cancer. PLAN: 1. Admission to inpatient rehabilitation. 2. PT, OT, speech, language, case management, nursing and attempts to make evaluations and recommendations. 3. Plan of care is pending. 4. Medication reconciliation was completed. 5. We will team him weekly and make changes to the plan of care as needed. 6. Cardiac diet. <ELECTRONICALLY SIGNED> By: Sharla Rucker DO 07/27/17 1502 [id number] Rucker DO /nt
--- NOTE | 2017-07-27 15:02 | PLAN ---
[address] [address] REHAB UNIT PLAN OF CARE Name: JOSE DOLL Room: [address]#: [id number] Admission: 06/25/17 Attend Phys: Sharla Rucker DO Discharge: 07/14/17 Date of : 33 Report #: [id number] THIS REPORT FOR: //name// CC: Arjun Rucker This is an 81-year-old right-hand dominant male status post admission to inpatient rehabilitation to facilitate safe discharge home status post right CVA in frontal, parietal, and occipital lobes with an old right frontal CVA, also noted via MRI with residual left upper and lower extremity hemiparesis, mild aphasia and dysphagia, mild memory changes and expressive changes. He is status post right carotid endarterectomy on 06/23/2017 with no significant issues in the postoperative period. Previous level of function was independent with all activities of daily living. Current level of function is minimum to moderate assistance of 1-2 depending on therapy, activity and time of day. He does have mild impairment of comprehension, expression, social interaction, problem solving and memory. REHABILITATION PROGNOSIS: Good. MEDICAL PROGNOSIS: Good. Estimated length of stay is 14-16 days with discharge disposition to the home setting with supportive family where he lives in a farm house with 2 steps to enter. His is in good health. He does have children in the area that can also assist. Physical therapy will see the patient 60-90 minutes per day, 5 days per week, working on upper and lower body strength, balance, coordination, navigation, bathing, dressing. Occupational therapy will work with the patient 60-90 minutes per day, 5 days per week, working on upper and lower body strength, balance, coordination, navigation, bathing, dressing, and toileting. Speech and language pathology will work with the patient 60-90 minutes per day, 5 days per week, working on memory, cognition, expression, swallow 5 days per week. This is an overall plan of care, may change from time to time. We will team weekly and make changes to plan of care as needed. <ELECTRONICALLY SIGNED> By: Sharla Rucker DO 07/27/17 1502 [id number] Rucker DO /nt
--- NOTE | 2017-07-27 15:06 | D ---
[facility] [address] [place] [address] DISCHARGE SUMMARY Name: JOSE DOLL Room: [address] IN M.R.#: [id number] Admission: 06/25/17 Attend Phys: Sharla Rucker DO Discharge: 07/14/17 Date of : 33 Report #: [id number] THIS REPORT FOR: //name// CC: Arjun Adolph Rucker DATE OF SERVICE: 07/14/2017 DISCHARGE DIAGNOSIS: Right cerebrovascular accident. DISCHARGE DISPOSITION: To the home setting with supportive family, with home health, PT, OT, nursing and speech. ACTIVITY: He will utilize a front-wheeled walker for household distances. DIET: Cardiac diet. FOLLOWUP: Follow up with primary care physician within 1 week and Neurology within a month. Notifications for physician were given. MEDICATIONS: Reviewed, reconciled by myself and are available in the MAR. Any prescriptions needed were given for one month's time period. DISCHARGE PHYSICAL EXAMINATION: GENERAL: Alert, oriented, in no apparent distress. VITAL SIGNS: Reviewed and are stable. HEENT: Atraumatic, normocephalic. Pupils equal, round and reactive. ABDOMEN: Soft, nontender and nondistended. NEUROLOGIC: Cranial nerves 2-12 are grossly intact. SKIN: Warm and dry. No rashes or lesions noted. MUSCULOSKELETAL: No clubbing, cyanosis or edema. <ELECTRONICALLY SIGNED> By: Sharla Rucker DO 07/27/17 1506 [id number] Rucker DO /yann
== END 2017-07-14 14:00 | disposition home health service (06) | DRG 65 ==
LOC: M.REH 17:14
PROVIDERS: Family Medicine; Internal Medicine; ADMIT Physical Medicine & Rehabilitation
DX: I63.9 Cerebral infarction, unspecified (principal); G81.94 Hemiplegia, unspecified affecting left nondominant side; R47.01 Aphasia; R13.10 Dysphagia, unspecified; I25.10 Atherosclerotic heart disease of native coronary artery without angina pectoris; N40.0 Benign prostatic hyperplasia without lower urinary tract symptoms; E78.5 Hyperlipidemia, unspecified; I50.9 Heart failure, unspecified; E87.6 Hypokalemia; I11.0 Hypertensive heart disease with heart failure; E11.65 Type 2 diabetes mellitus with hyperglycemia; I25.2 Old myocardial infarction; Z85.038 Personal history of other malignant neoplasm of large intestine; Z98.42 Cataract extraction status, left eye; Z98.41 Cataract extraction status, right eye; Z79.82 Long term (current) use of aspirin; Z79.4 Long term (current) use of insulin; Z79.899 Other long term (current) drug therapy; Z91.11 Patient's noncompliance with dietary regimen; Z83.3 Family history of diabetes mellitus; Z80.9 Family history of malignant neoplasm, unspecified; Z82.49 Family history of ischemic heart disease and other diseases of the circulatory system; Z91.19 Patient's noncompliance with other medical treatment and regimen